=== PATIENT | male | born 1980 | race Caucasian/White ===

== ENCOUNTER → 2022-10-17 | Outpatient (CLI) | payer OTHER ==
--- NOTE | 2022-10-17 14:33 | Diagnostic Imaging Report ---
INDICATION: Nausea and vomiting. PROCEDURE: Ultrasound abdomen complete. TECHNIQUE: Multiple real-time grayscale images were obtained of the abdomen in various projections. Liver is normal in size 16 cm. There is increased echogenicity to the liver consistent with hepatic steatosis. No liver mass is detected. Gallbladder is without stones or sludge. There is no wall thickening or biliary duct dilatation. Pancreas was obscured by bowel gas. Spleen is upper limits of normal approximately 13.9 cm. Aorta is nonaneurysmal. IVC is patent. Right kidney measures 9.7 cm, left kidney measures 10.3 cm. No calculi or hydronephrosis is seen. There is no ascites. IMPRESSION: 1. Hepatic steatosis. 2. No evidence of cholelithiasis or acute cholecystitis. Dictated by: Dictated on workstation # [id number]
== END ==
LOC: RAD FS 11:50
PROVIDERS: ATTEND Nurse Practitioner
DX: Z01.89 Encounter for other specified special examinations (principal); K76.0 Fatty (change of) liver, not elsewhere classified; R11.2 Nausea with vomiting, unspecified
CPT/HCPCS: 76700